=== PATIENT | female | born 1950 | race Caucasian/White ===

== ENCOUNTER 2019-04-14 08:17 | Inpatient (IN) | payer MEDICARE, OTHER ==
[~2019-04-14] VITALS: Ht 162.6 cm; Wt 92.1 kg
--- NOTE | ~2019-04-14 | CON ---
[address] [address] CONSULTATION Name: CATHERINE FARFAN Room: [address] IN M.R.#: [id number] Admission: 04/14/19 Attend Phys: Kevin Zimmerman MD Discharge: 04/15/19 Date of : 48 Report #: [id number] THIS REPORT FOR: //name// CC: Kevin Healy DATE OF SERVICE: 04/15/2019 HISTORY OF PRESENT ILLNESS: This is a 69-year-old female patient who was admitted with an episode of weakness on the left side. The patient indicates that most of her symptoms were in the left lower extremity, although her face was affected and the left upper extremity was affected. Initially, the patient was not able to walk, but subsequently she walked and now she indicates she has some weakness, but she can still walk. Symptoms were severe and she does not know if anything made it better or worse. The patient's symptoms came spontaneously without any trauma. REVIEW OF SYSTEMS: Indicates that the patient never had this kind of symptoms before. She is a diabetic. She also has dyslipidemia, but she indicates she does not take her statin on a regular basis. She denies any history of any prior stroke or TIA. Presently, she is not having any new eye, ENT, cardiac, respiratory, GI, , musculoskeletal, constitutional, dermatological, hematological, psychiatric, throat, allergic symptoms associated with present symptomatology. PAST MEDICAL HISTORY: Negative for any TIA. FAMILY HISTORY: Negative for any early age stroke. SOCIAL HISTORY: She drinks alcohol very occasionally and she does not smoke. PHYSICAL EXAMINATION: Indicate she is alert, responsive, oriented. Her speech, concentration, fund of knowledge and memory is at her baseline. Cranial nerve examination 2-12 is unremarkable. She complained of weakness in the left upper and left lower extremity. However, when I make the patient walk, she is able to walk without much difficulty. So, there is a discrepancy in her strength when checked by two modalities. Her reflexes are symmetrical, but somewhat diminished as expected with diabetes. Sensation is normal. Tone is unremarkable. There is no papilledema. There is no carotid bruit. There is no meningeal sign. She is moderately built individual who does not have any dysmorphic features of eyes, ears and face. Her vision and hearing looks adequate. Pulses are palpable. She has no edema, cyanosis or jaundice. Cardiac examinations appear unremarkable. Blood pressure is 133/76, respiration is 18, pulse is 80, temperature is 98.3. No respiratory difficulty [place] [address] CONSULTATION Name: CATHERINE FARFAN Room: [address]#: [id number] Admission: 04/14/19 Attend Phys: Kevin Zimmerman MD Discharge: 04/15/19 Date of : 48 Report #: [id number] LABORATORY DATA: White count is 7.4. LDL is still high at 97. She did have a CT scan of the head and MRI/MRA and they were unremarkable. IMPRESSION: This patient presents with symptoms, which are difficult to evaluate because MRI of the brain is normal. She is under a lot of stress and that can cause similar symptom, but she never had this kind of symptom before and in fact she indicates that she does not take any antidepressant or antianxiety medications or anything for stress. Because of that, I will go ahead and do CT scan of thoracic spine to exclude any pathology there. If not, we basically has to watch the patient and see how she does with physical therapy and make sure she takes her statin and antiplatelet of full aspirin daily. She needs some more workup and we can carry that workup as an outpatient including EMG because we do not have any machine here for that. Thank you very much for this referral. By: [id number] Schroeder MD /nt
[~2019-04-14 08:17] MED LIST: ALLEGRA30 MG PO; CHOLESTEROL MED; JANUMET 50-5001 EACH PO; NORCO 5-325 TA1 EACH PO; PRINIVIL
[2019-04-14 08:23] VITALS: BP 142/67
[2019-04-14 08:53] LABS: ABSOLUTE BASOPHILS 0.1 thou/uL (0.0-0.2); ABSOLUTE EOSINOPHILS 0.5 thou/uL (0.0-0.7); ABSOLUTE LYMPHOCYTES 1.7 thou/uL (0.8-5.3); ABSOLUTE MONOCYTES 0.8 thou/uL (0.0-1.2); ABSOLUTE NEUTROPHILS 4.4 thou/uL (1.6-8.1); EOSINOPHILS 6.4 %; HEMOGLOBIN 13.7 gm/dL (12.0-15.0); LYMPHOCYTES 23.1 %; MCHC 32.6 g/dL (28.0-37.0); MCV 85.9 fL (80.0-100.0); MONOCYTES 10.3 %; NUCLEATED RBCS 0 /100WBC; PLATELET COUNT* 293 thou/uL (150-400); POLYS 59.2 %; RBC 4.89 mil/uL (4.20-5.00); RDW-CV 13.3 % (10.5-14.5); WBC 7.5 thou/uL (4.0-11.0)
[2019-04-14 09:09] LABS: ALBUMIN 3.6 g/dL (3.4-5.0); ALKALINE PHOSPHATASE 137 U/L (46-116); ANION GAP 8 mmol/L (7-16); BUN 18 mg/dL (7-18); CHLORIDE 104 mmol/L (98-107); CO2 30 mmol/L (21-32); CREATININE 0.9 mg/dL (0.6-1.3); GLUCOSE 129 mg/dL (70-99); POTASSIUM 4.2 mmol/L (3.5-5.1); SGOT 17 U/L (15-37); SGPT 32 U/L (30-65); SODIUM 142 mmol/L (136-145); TOTAL BILIRUBIN 0.3 mg/dL (<0.1-1.0); TOTAL PROTEIN 7.3 g/dL (6.4-8.2); TROPONIN-I LEVEL <0.06 ng/mL (<0.06)
[2019-04-14] MEDS ORDERED: BASAGLAR K100 UNIT/1 SUBQ (09:21)
[2019-04-14] MEDS ORDERED: METFORMIN HCL500 MG PO (09:21)
[2019-04-14] MEDS ORDERED: LOSARTAN POTASS50 MG PO (09:22)
[2019-04-14] MEDS ORDERED: FEMARA2.5 MG PO (09:22)
[2019-04-14] MEDS ORDERED: ATORVASTATIN CA40 MG PO (09:22)
[2019-04-14] MEDS ORDERED: FLEXERIL PO (09:23)
[2019-04-14] MEDS ORDERED: VICTOZA0.6 MG/0.1 SUBQ (09:23)
[2019-04-14] MEDS ORDERED: CALCIUM 500 +1 EAC5 PO (09:23)
[2019-04-14 09:24] LABS: CALCIUM 9.7 mg/dL (8.5-10.1)
[2019-04-14 10:18] LABS: URINE BILIRUBIN NEGATIVE (Negative); URINE BLOOD NEGATIVE (Negative); URINE CLARITY CLEAR; URINE COLOR YELLOW; URINE GLUCOSE-RANDOM NEGATIVE (Negative); URINE KETONES NEGATIVE (Negative); URINE LEUKOCYTES-REFLEX NEGATIVE (Negative); URINE NITRITE-REFLEX NEGATIVE (Negative); URINE PROTEIN NEGATIVE (Negative); URINE SPECIFIC GRAVITY 1.015 (1.005-1.030); URINE UROBILINOGEN 0.2 E.U./dl (0.2-1.0)
--- NOTE | 2019-04-14 14:36 | EKG ---
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
[2019-04-14 15:00] VITALS: BP 136/79
--- NOTE | 2019-04-14 15:55 | 2DMMODE ---
[place] [address] 2 D/M-MODE ECHOCARDIOGRAM Name: CATHERINE FARFAN Room: [address] IN [facility]#: [id number] Admission: 04/14/19 Attend Phys: Kevin Zimmerman, Discharge: Date of : 48 Date of Service: 04/14/19 1555 Report #: [id number] THIS REPORT FOR: //name// APPROVED REPORT Study performed: 04/14/2019 14:22:11 EXAM: Comprehensive 2D, Doppler, and color-flow Echocardiogram Patient Location: In-Patient Room #: er Status: routine BSA: 2.03 HR: 73 bpm BP: 143/82 mmHg Rhythm: NSR Other Information Study Quality: Good Indications CVA/TIA Echo Enhancing Agent Indication: Rule out Shunt Agent(s) / Amount(s) Used: Agitated Saline 10 cc 2D Dimensions IVSd: 11.52 (7-11mm) LVOT Diam: 19.29 (18-24mm) LVDd: 44.88 mm PWd: 11.54 (7-11mm) Ascending Ao: 33.99 (22-36mm) LVDs: 26.57 (25-40mm) Aortic Root: 31.36 mm Volumes Left Atrial Volume (Systole) LA ESV Index: 22.50 mL/m2 Aortic Valve AoV Peak Harry.: 1.47 m/s AO Peak Gr.: 8.68 mmHg LVOT Max P.42 mmHg AO Mean Gr.: 4.13 mmHg LVOT Mean P.43 mmHg LVOT Max V: 1.16 m/s AO V2 VTI: 26.19 cm LVOT Mean V: 0.71 m/s KASSANDRA (VTI): 2.37 cm2 LVOT V1 VTI: 21.24 [place] [address] 2 D/M-MODE ECHOCARDIOGRAM Name: CATHERINE FARFAN Room: [address] IN .R.#: [id number] Admission: 04/14/19 Attend Phys: Kevin Zimmerman, Discharge: Date of : 48 Date of Service: 04/14/19 1555 Report #: [id number] Mitral Valve E/A Ratio: 0.82 MV Decel. Time: 227.87 ms MV E Max Harry.: 0.73 m/s MV PHT: 66.08 ms MVA (PHT): 3.33 cm2 TDI E/Lateral E': 6.64 E/Medial E': 9.13 Medial E' Harry.: 0.08 m/s Lateral E' Harry.: 0.11 m/s Pulmonary Valve PV Peak Harry.: 0.80 m/s PV Peak Gr.: 2.56 mmHg Left Ventricle The left ventricle is normal size. There is normal LV segmental wall motion. There is normal left ventricular wall thickness. Left ventricular systolic function is normal. LVEF is 60-65%. Grade I - abnormal relaxation pattern. Right Ventricle The right ventricle is normal size. The right ventricular systolic function is normal. Atria Left atrium is mildly dilated. Interatrial septum is intact without evidence of ASD or PFO. The right atrium size is normal. Aortic Valve The aortic valve is normal in structure. No aortic regurgitation is present. There is no aortic valvular stenosis. Mitral Valve The mitral valve is normal in structure. Trace mitral regurgitation. No evidence of mitral valve stenosis. Tricuspid Valve The tricuspid valve is normal in structure. Trace tricuspid regurgitation. Pulmonic Valve The pulmonary valve is normal in structure. Mild pulmonic regurgitation[place] [address] 2 D/M-MODE ECHOCARDIOGRAM Name: ADOLPHMARITZACATHERINE D Room: [address] IN [facility]#: [id number] Admission: 04/14/19 Attend Phys: Kevin Zimmerman, Discharge: Date of : 48 Date of Service: 04/14/19 2924 Report #: [id number] The aortic root is normal in size. IVC is normal in size and collapses >50% with inspiration. Pericardium There is no pericardial effusion. <Conclusion> The left ventricle is normal size. There is normal left ventricular wall thickness. Left ventricular systolic function is normal. LVEF is 60-65%. Grade I - abnormal relaxation pattern. Left atrium is mildly dilated. Interatrial septum is intact without evidence of ASD or PFO. Trace mitral regurgitation. Trace tricuspid regurgitation. Mild pulmonic regurgitation. <ELECTRONICALLY SIGNED> By: Hong Flores MD, FACC 04/14/19 1555 1555 1555 Hong Flores MD, FACC /INF
[2019-04-14 16:09] VITALS: BP 136/79
[2019-04-14 20:00] VITALS: BP 133/73
[2019-04-15] VITALS: BP 127/68
[2019-04-15 04:00] VITALS: BP 136/79
--- NOTE | 2019-04-15 04:58 | NUR ---
PT CARE ASSUMED AT 1930. SAT MAINTAINED IN RA. ALERT AND ORIENTED X4. CALL LIGHT WITHIN REACH AND BED IN LOW POSITION. DENIES PAIN AND SOB. HOURLY ROUNDING DONE FOR PT SAFETY.
[2019-04-15 05:35] LABS: ABSOLUTE BASOPHILS 0.1 thou/uL (0.0-0.2); ABSOLUTE EOSINOPHILS 0.6 thou/uL (0.0-0.7); ABSOLUTE LYMPHOCYTES 1.9 thou/uL (0.8-5.3); ABSOLUTE MONOCYTES 0.7 thou/uL (0.0-1.2); ABSOLUTE NEUTROPHILS 4.1 thou/uL (1.6-8.1); BASOPHILS 0.8 %; EOSINOPHILS 7.9 %; HEMATOCRIT 39.6 % (37.0-47.0); HEMOGLOBIN 13.1 gm/dL (12.0-15.0); LYMPHOCYTES 26.1 %; MCH 28.2 pg (26.0-34.0); MCHC 33.1 g/dL (28.0-37.0); MCV 85.2 fL (80.0-100.0); MONOCYTES 9.6 %; MPV 8.2 fl. (7.2-11.1); NUCLEATED RBCS 0 /100WBC; PLATELET COUNT* 280 thou/uL (150-400); POLYS 55.6 %; RBC 4.65 mil/uL (4.20-5.00); RDW-CV 13.4 % (10.5-14.5); WBC 7.4 thou/uL (4.0-11.0)
[2019-04-15 05:37] LABS: CALCIUM 8.9 mg/dL (8.5-10.1); CREATININE 0.8 mg/dL (0.6-1.3)
[2019-04-15 05:41] LABS: CHOLESTEROL 181 mg/dL (<200); HDL CHOLESTEROL 47 mg/dL (>40); LDL CHOLESTEROL 97 mg/dL (<100); TC:HDL 3.9 Ratio (Not establshd); TRIGLYCERIDE 188 mg/dL (<150); VLDL 38 mg/dL (<40)
[2019-04-15 05:44] LABS: SERUM ASSESSMENT CLEAR
[2019-04-15 08:00] VITALS: BP 133/76
--- NOTE | 2019-04-15 08:00 | NUR ---
ASSUMED PT CARE AT 0700, PT UP IN BED, CALL LIGHT IN REACH. CONT TO HAVE LEFT SIDED WEAKNESS, UP AD WALTER WITH STEADY GAIT. DENIES ANY PAIN AT THIS TIME, NIH SCALE DOCUMENTED. 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 WILL CONT POC.
[2019-04-15 11:48] VITALS: BP 142/96
[2019-04-15] MEDS ORDERED: LIPITOR80 MG PO (12:59)
[2019-04-15] MEDS ORDERED: ASPIRIN EC81 M1 PO (13:00)
[2019-04-15 14:09] LABS: GLYCOHEMOGLOBIN (HGB A1C) 8.6 % (4.8-5.6)
[2019-04-15 14:59] VITALS: BP 142/96
--- NOTE | 2019-04-15 16:07 | NUR ---
PT DISCHARGED HOME AT APPROX 1545 VIA WHEELCHAIR WITH AND NURSING STAFF. HOURLY ROUNDING COMPLETED, EDUCATED ON ALL DISCHARGE INSTRUCTIONS INCLUDING FOLLOW UP APPTS AND MEDICATIONS. VEHICLE TRIMMER AND IV REMOVED.
--- NOTE | 2019-04-15 16:23 | NUR ---
PT. DISCHARGED HOME PRIOR TO O.T. EVAL. PLEASE ORDER FURTHER O.T. SERVICES IF NEEDED.
== END 2019-04-15 15:45 | disposition home or self-care (01) | DRG 69 ==
LOC: M.ERS 08:17 → M.2W 10:39 → M.TBA-ER 10:39 → M.2W 16:37
PROVIDERS: Personal Emergency Response Attendant; ADMIT Internal Medicine
DX: G45.9 Transient cerebral ischemic attack, unspecified (principal); E11.9 Type 2 diabetes mellitus without complications; E78.5 Hyperlipidemia, unspecified; E78.00 Pure hypercholesterolemia, unspecified; M19.90 Unspecified osteoarthritis, unspecified site; Z79.899 Other long term (current) drug therapy